=== PATIENT | female | born 1985 | race Caucasian/White ===

== ENCOUNTER 2024-10-24 15:19 | Outpatient (CLI) | payer OTHER, SELFPAY ==
[2024-10-24 16:29] LABS: Basophils # 0.1 K/mm3 (0-0.2); Basophils % 0.5 % (0.1-2.0); Eosinophils # 0.3 K/mm3 (0.0-0.4); Eosinophils % 2.7 % (0.1-12.0); Hematocrit 41.9 % (37.0-47.0); Hemoglobin 14.2 g/dL (12.2-16.2); Lymphocytes # 1.6 K/mm3 (0.7-4.5); Lymphocytes % 16.1 % (10-50); Mean Corpuscular HGB Conc 33.9 g/dL (31.8-35.4); Mean Corpuscular Hemoglobin 29.2 pg (27.0-31.2); Mean Platelet Volume 12.2 fl (7.4-10.4); Monocytes # 0.4 K/mm3 (0.1-1.0); Monocytes % 3.6 % (1.7-9.3); Neutrophils # 7.7 K/mm3 (1.8-7.8); Neutrophils % 76.9 % (37.0-80.0); Platelet Count 234 K/mm3 (142-424); Red Blood Count 4.87 M/mm3 (4.20-5.40)
[2024-10-24 17:04] LABS: Albumin Level 5.1 g/dl (3.5-5.0); Chloride 105 mmol/L (98-107)
[2024-10-24 17:05] LABS: Potassium 4.3 mmoL/L (3.5-5.1); Sodium 138 mmol/L (136-145)
[2024-10-24 17:07] LABS: Alanine Aminotransferase 12 U/L (12-78); Alkaline Phosphatase 70 U/L (38-126); Anion Gap 15.3 mEq/L (5-15); Aspartate Amino Transferase 31 U/L (14-36); Bilirubin,Total 0.7 mg/dl (0.2-1.3); Blood Urea Nitrogen 13 mg/dl (7-17); Carbon Dioxide 22 mmol/L (22.0-30.0); Estimated Glomerular Filt Rate 93 ml/min (>60); GFR (African American) 112 ML/MIN (>60); Globulin 2.6 g/dL (1.3-3.2); Iron 106 ug/dL (37-170); Total Protein,Serum 7.7 g/dl (6.3-8.2)
[2024-10-24 17:08] LABS: Glucose 109 mg/dl (74-100)
[2024-10-24 17:14] LABS: C-Reactive Protein 1.6 mg/L (0-4)
[2024-10-24 17:18] LABS: Total Iron Binding Capacity 311 ug/dL (265-497)
[2024-10-24 17:26] LABS: 25-OH Vitamin D, Total 46.1 ng/mL (30-100)
[2024-10-24 17:40] LABS: Erythrocyte Sedimentation Rate 12 mm/hr (0-20)
[2024-10-24 17:43] LABS: Ferritin 32.3 ng/ml (6.24-137)
[2024-10-24 17:59] LABS: Vitamin B12 486 pg/mL (239-931)
== END 2024-10-24 23:59 | disposition home or self-care (01) ==
LOC: LAB 15:20
PROVIDERS: Visit Provider Nurse Practitioner Family
DX: K50.90 Crohn's disease, unspecified, without complications (principal)
CPT/HCPCS: 36415; 80053; 82306; 82607; 82728; 83540; 83550; 85025; 85651; 86140